=== PATIENT | male | born 1930 | race Caucasian/White ===

== ENCOUNTER 2017-04-15 17:04 | Inpatient (IN) ==
[2017-04-15] MEDS ORDERED: TYLENOL PO PRN (17:24)
[2017-04-15] MEDS ORDERED: PROTONIX PO PRN (18:06)
[2017-04-15] MEDS ORDERED: ANTIVERT PO ONE (18:08)
[2017-04-15] MEDS ORDERED: ANTIVERT PO PRN (18:08)
[2017-04-15] MEDS: NS 1,000 ML IV SCH (18:47)
[2017-04-15 19:54] LABS: MANUAL DIFF NEEDED? NO
--- NOTE | 2017-04-15 19:56 | Diag Imaging Result Doc PS360 ---
EXAM: CT HEAD W/O CONTRAST TECHNIQUE: Dose reduction protocol was used. INDICATION: Acute visual change/ dizziness COMPARISON: None. FINDINGS: There is chronic appearing low attenuation in the external capsules bilaterally suggesting microangiopathy. There is a chronic lacunar infarct involving the left basal ganglion. There is no definite acute infarct given the limited sensitivity of CT versus MRI. There is no discrete intracranial mass, mass effect, or intracranial hemorrhage. The orbits and globes are essentially unremarkable. There is left sphenoid sinus mucosal disease. Surrounding soft tissues are essentially unremarkable, otherwise. The calvaria is intact. IMPRESSION: 1.Chronic appearing intracranial changes as described. No evidence of acute intracranial pathology by CT. 2.Left sphenoid sinus mucosal disease. Electronically signed by Fernando Baker 04/15/2017 7:53 PM
[2017-04-15 19:59] LABS: BASO% 0.6 % (0.0-0.8); EOS% 4.5 % (0.0-10.0); HEMOGLOBIN 14.7 g/dL (14.0-18.0); IMM GRAN# 0.02 X1000 (0.0-0.04); IMM GRAN% 0.3 % (0.0-0.5); LYMPH# 1.45 X1000 (1.2-3.4); LYMPH% 21.9 % (20.5-51.1); MCH 28.7 PG (27-31); MCHC 34.2 g/dL (33-37); MONO# 0.54 X1000 (0.11-0.59); MONO% 8.2 % (1.7-9.3); MPV 9.5 FL (7.4-10.4); NEUT% 64.5 % (42.2-75.2); PLT 234 X1000 (130-400); RBC 5.12 XMIL (4.7-6.1)
[2017-04-15 20:10] LABS: INR 1.01; PROTIME 10.6 Seconds (9.2-11.7); PTT 29.3 Seconds (22.0-36.0)
[2017-04-15 20:19] LABS: AGAP 14; ALBUMIN 4.3 g/dL (3.5-5.0); ALKALINE PHOSPHATASE 92 U/L (32-122); BUN 14 mg/dL (8-22); CALCIUM 9.2 mg/dL (8.8-10.2); CHLORIDE 102 mmol/L (98-107); CK PROFILE 75 U/L (24-204); COSMO 283; GOT 17 U/L (10-34); GPT 11 U/L (10-44); POTASSIUM 3.8 mmol/L (3.5-5.1); SODIUM 142 mmol/L (136-145); TCO2 26 mmol/L (25-35); TOTAL BILIRUBIN 0.31 mg/dL (0.20-1.00)
[2017-04-15] MEDS: TOPROL XL PO SCH (20:40)
[2017-04-15 20:42] LABS: FREE T4 1.17 ng/dL (0.93-1.70)
--- NOTE | 2017-04-15 21:04 | HISTORY AND PHYSICAL ---
PRIMARY CARE PHYSICIAN: Frantz Randle MD. CHIEF COMPLAINT: Acute visual abnormality and dizziness. HISTORY OF PRESENT ILLNESS: An 86-year-old, white male with a past medical history significant for an abnormal skin examination with multiple actinic keratoses and seborrheic keratoses, right bundle branch block, carotid artery disease, carpal tunnel syndrome, cervical spine disease, coronary artery disease status post coronary artery bypass grafting in 2009, reflux disease, hypertension, hypertriglyceridemia, hyperlipidemia, chronic low back pain, paroxysmal atrial fibrillation, and cervical spinal stenosis who presents for evaluation of above-mentioned symptoms. Current history of present illness began last night. At that time, patient states he had developed acute onset dizziness, weakness, and blurred vision. The patient states that symptoms lasted for several hours, but did improve prior to his going to bed. The patient states he rested overnight. He awoke this morning feeling reasonably well. The patient states he drove to [employer] for breakfast and then home without incident. 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 The patient stopped his work and contacted my office. Patient was encouraged to pursue acute care, although he deferred. The patient presented to clinic this afternoon for further evaluation and management. He describes the visual change as a blurriness. He does have a longstanding history of intermittent diplopia and dysconjugate gaze requiring prism glasses. He describes this new change as being different in character. The patient's dizziness is described as somewhat similar to previous episodes of vertigo. He notes exacerbation of his symptoms with quick/abrupt movements. Patient states while sitting still, his dizziness resolves. He denies chest pains, palpitations, shortness of breath, or additional neurologic deficits at the present time. He has noted some increasing fatigue over the course of the last week. PAST MEDICAL HISTORY: 1. Multiple actinic keratoses and seborrheic keratoses. 2. History of appendectomy in 1941 secondary to acute appendicitis. 3. Right painful osteoarthritis. 4. Right bundle branch block/bifascicular block. 5. Carotid artery disease, left greater than right followed by Dr. Ritchie. 6. Carpal tunnel syndrome status post bilateral releases. 7. Ischemic heart disease status post coronary artery bypass grafting in January 2010. 8. History of intermittent dizziness/vertigo. 9. Reflux disease. 10. Hypertension. 11. Hypertriglyceridemia. 12. External hemorrhoids. 13. Hyperlipidemia. 14. Left inguinal hernia status post surgical intervention in 2011. 15. Low back pain with significant lumbar osteoarthritis. 16. Paroxysmal atrial fibrillation diagnosed in 2006 with no recurrence since coronary artery bypass grafting in 2009. 17. Cervical spinal stenosis status post surgical intervention in 2013. CURRENT MEDICATIONS: 1. Aspirin 81 mg daily. 2. Celebrex 200 mg daily as needed. 3. Fish oil 1200 mg at bedtime. 4. Glucosamine Chondroitin daily. 5. Metoprolol ER 25 mg at bedtime. 6. Protonix 40 mg daily as needed. 7. Vitamin B12, 1000 mcg daily. ALLERGIES: Patient states CoQ10 causes myalgias and weakness. Pravastatin causes myalgias. SOCIAL HISTORY: Patient denies tobacco, alcohol or illicit drug use. 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 He enjoys woodworking, house jonathan, and farming. He exercises by walking. FAMILY HISTORY: Patient's father passed at age 76 secondary to complications of coronary artery disease. Patient's mother passed at age 95 secondary to "old age." REVIEW OF SYSTEMS: A 12 point review of systems was performed. Pertinent positives and negatives were noted in history present illness. PHYSICAL EXAMINATION: VITAL SIGNS: Temperature 98.2 degrees, heart rate 73, respirations 18, blood pressure is 145/82. GENERAL: Well-nourished, well-developed, in no acute distress. HEENT: Normocephalic, atraumatic. Pupils equal, round, reactive to light. Extraocular muscles intact. Sclerae anicteric. [place] conjunctivae. Oral mucosa and nasopharynx clear without exudate. NECK: Supple. No lymphadenopathy. No thyromegaly. No bruits auscultated. CARDIOVASCULAR: Regular rate and rhythm. No significant murmurs, rubs, or gallops. PULMONARY: Clear to auscultation bilaterally. ABDOMEN: Soft, nontender, nondistended. Positive bowel sounds. EXTREMITIES: Moves all extremities well. No significant clubbing, cyanosis, or edema. NEUROLOGIC EXAMINATION: Cranial nerves 2 through 12 grossly intact. Motor and sensory grossly intact with the exception of intermittent dysconjugate gaze. PSYCHOLOGIC EXAMINATION: Appropriate. LABORATORY DATA: Pending at the time of admission. RADIOLOGIC IMAGING: Pending at the time of admission. ASSESSMENT AND PLANNING: An 86-year-old, white male with a complicated past medical history, who presents for evaluation of acute onset visual abnormalities with associated dizziness. While this could represent underlying vertigo, I am very concerned this likely represents a neurological deficit secondary to an intracranial process/stroke. The patient will be admitted to the hospital for full evaluation and management of this condition. 1. Admit to General Medicine. 2. Acute visual change - As above, I encouraged patient to go immediately for ophthalmologic evaluation, however, patient deferred. The question is raised whether this is a primary visual or primary central etiology. We will check a CT scan of the head. Patient denies pain at the present time. For now, we will continue supportive care. We will plan on ophthalmologic evaluation once able. 3. Dizziness - Again, this could represent underlying vertigo. I am concerned that a neurological insult may have precipitated this. We will treat patient with as needed Antivert and hydration. We will follow this. 4. Unsteady gait - Patient has a significant unsteady gait, likely secondary to dizziness. We will evaluate as described above. 5. Carotid artery disease - Patient has known disease. Certainly progressive carotid artery disease could present in a similar fashion. We will check a carotid Doppler. 6. Ischemic heart disease - Patient is status post coronary artery bypass grafting in 2009. The patient currently is not interested in statin intervention. We will otherwise continue to optimize his medical management. He certainly is at risk for arrhythmia. 7. Reflux disease - We will continue as needed Protonix therapy. 8. Hypertension - Patient's blood pressure is slightly elevated today. We will continue to follow this closely. 9. Hyperlipidemia - As above, patient's cholesterol has been held. Should this prove to be consistent with an underlying stroke, we will again discuss the possibility of starting intervention. 10. Paroxysmal atrial fibrillation - This is historical. Certainly, patient is at risk for recurrence. We will monitor patient with telemetry overnight. 11. Cervical spinal stenosis - We will remain aware. 12. Fluid, electrolytes, nutrition. We will monitor electrolytes. Normal saline at 50 mL an hour. Regular diet. 13. Prophylaxis - Patient will be placed on subcutaneous Lovenox. cc: Frantz Randle MD
[2017-04-16] MEDS: VITAMIN B-12 PO SCH (09:06)
[2017-04-16] MEDS: FISH OIL CONCENTRATE PO SCH (09:06)
--- NOTE | 2017-04-16 13:34 | PROGRESS NOTE ---
DATE: 04/16/2017 SUBJECTIVE: Overall, patient is moderately improved from yesterday. The patient received IV fluids overnight. CT scan revealed chronic changes, but no acute disease. This morning, patient states his dizziness has decreased, but not resolved. He was able to ambulate into the restroom without incident. He notes his vision also has improved, although not back to baseline. He denies fevers, chills, nausea, vomiting, shortness of breath, or chest discomfort. OBJECTIVE: T-max is 98.5 degrees, heart rate 66-76, respirations 18-20, blood pressure 134 to 176 over 69 to 90.General: No acute distress. Cardiovascular: Regular rate and rhythm. No significant murmurs, rubs, or gallops. Pulmonary: Clear to auscultation bilaterally. Abdomen: Soft, nontender, nondistended. Positive bowel sounds. Extremities: Moves all extremities well. No significant clubbing, cyanosis, or edema. Dermatologic: Evaluation reveals no evidence of rash. LABORATORY DATA: White blood cell count 6.61, hemoglobin 14.7, hematocrit 43.0, platelet counts 234,000. Sedimentation rate 8. PT 10.6, INR is 1.01. PTT is 29.3. Sodium 142, potassium 3.8, chloride 102, bicarb 26, BUN 14, creatinine 1.0. Glucose 95, calcium 9.2, total bilirubin 0.31, total protein 7.0 albumin 4.3, alkaline phosphatase 92, AST 17, ALT 11, CK 75, troponin less than 0.010. CRP 0.280. TSH 2.49, free T4 1.17. ASSESSMENT AND PLAN: 1. Acute visual changes - as above, patient has achieved improvement, although not resolution. I am concerned this may be centrally mediated suggesting a small stroke versus a TIA. At this point, we will continue medical management. We will add aspirin therapy. Once able, we will plan an MR evaluation and carotid Doppler. We will also plan an ophthalmologic evaluation early next week. We will follow this. 2. Dizziness - once again, I am concerned this could be centrally mediated. We will evaluate with an MRI as noted. We will continue symptomatic management with IV fluids and Antivert. 3. Unsteady gait - Once again, I suspect this is secondary to his acute illness. We will keep in mind a cervical spinal stenosis may also be playing a role. We will continue management as above. 4. Carotid artery disease - patient has known disease. We will plan to recheck a carotid Doppler as soon as available. We will continue aspirin therapy. 5. Ischemic heart disease - we will continue patient on aspirin therapy. He defers statin intervention at present time. We will continue blood pressure control. 6. Reflux disease - we will continue Protonix therapy. 7. Hypertension - patient's blood pressure is reasonably controlled on his current regimen. 8. Hyperlipidemia - as above, patient is resistant to statin intervention. He understands associated risk of not pursuing intervention. 9. Paroxysmal atrial fibrillation - this is historical. We will continue following the patient on telemetry. Thus far, he has had no evidence of atrial fibrillation. 10. Disposition - at this point, patient continues to require penitentiary care in a hospital setting. We will plan discharge home once appropriate. cc: Frantz Randle MD
[2017-04-16] MEDS: ASPIRIN PO SCH (14:53)
[2017-04-16] MEDS: NS 1,000 ML IV SCH (14:54)
--- NOTE | 2017-04-16 17:53 | Carotid Study ---
DATE: 04/15/2017 PROCEDURE: Carotid duplex imaging. REFERRING PHYSICIAN: Dr. Frantz Randle INTERPRETING PHYSICIAN: Dr. Perry [facility]: [place] INDICATIONS: 1. Dizziness with vertigo. 2. Visual changes. OBSERVED DATA RIGHT LEFT Brachial Blood Pressure Carotid Pulse Bruits: Carotid/Sub DIAGRAM OF ULTRASOUND IMAGING R L RIGHT INT EXT INT EXT LEFT John (cm/s) John (cm/s) Subclavian 115/0 Subclavian 103/0 CCA Proximal 78/9 CCA Proximal 73/7 CCA Distal 80/9 CCA Distal 82/12 Bulb 103/9 Bulb 93/15 ICA Proximal 95/9 ICA Proximal 130/25 ICA Mid 57/12 ICA Mid 117/17 ICA Distal 45/10 ICA Distal 56/14 ECA 112/0 ECA 109/0 Vertebral 41/4 A Vertebral 59/10 A ICA/CCA Ratio 1.18 ICA/CCA Ratio 1.58 % Stenosis 0 to 39 % Stenosis 40 to 59 FINDINGS: Minimal atherosclerosis that produces a mild stenosis on the right with a moderate stenosis on the left. Both vertebral arteries are antegrade flow. PHYSICIAN INTERPRETATION: Moderate stenosis of the carotid artery noted on the left at 40% to 59%. There is normal to mild stenosis on the right at 0% to 39%. Both vertebral arteries are antegrade flow. cc: MD Frantz Hinojosa MD
[2017-04-16] MEDS: TOPROL XL PO SCH (21:27)
[2017-04-17 07:42] VITALS: BP 120/74
[2017-04-17] MEDS: NS 1,000 ML IV SCH ×2 (08:17→10:29)
[2017-04-17] MEDS: VITAMIN B-12 PO SCH (08:18)
[2017-04-17] MEDS: FISH OIL CONCENTRATE PO SCH (08:18)
[2017-04-17] MEDS: ASPIRIN PO SCH (08:18)
[2017-04-17] MEDS ORDERED: LOVENOX SUBQ SCH (09:00)
--- NOTE | 2017-04-17 21:16 | DISCHARGE SUMMARY ---
ADMISSION DATE: 04/15/2017 DISCHARGE DATE: 04/17/2017 ADMISSION DIAGNOSES: 1. Acute visual abnormality. 2. Dizziness. DISCHARGE DIAGNOSES: 1. Acute visual changes, improving. 2. Dizziness, improving. 3. Unsteady gait, improving. 4. Carotid artery disease, present on arrival. 5. Ischemic heart disease, present on arrival. 6. Reflux disease, present on arrival. 7. Hypertension, present on arrival. 8. Hyperlipidemia, present on arrival. 9. Paroxysmal atrial fibrillation, present on arrival. CONSULTATIONS: None. PROCEDURES: 1. A CT scan of the head was performed on 04/15/2017 which revealed chronic appearing intracranial changes with no evidence of acute intracranial pathology. Left sphenoid sinus mucosal disease. 2. A carotid Doppler was performed on 04/16/2017 which revealed moderate stenosis of the carotid artery noted on the left at 40-59%. There was normal to mild stenosis on the right with 0- 39%. Both vertebral arteries are antegrade flow. HISTORY AND PHYSICAL EXAMINATION: See admit note. PHYSICAL EXAMINATION PRIOR TO DISCHARGE: Vital Signs: Temperature 97.6, heart rate 65, respirations 17, blood pressure is 120/74. General: Well nourished, well developed, no acute distress. Cardiovascular: Regular rate and rhythm. No significant murmurs, rubs, or gallops. Pulmonary: Clear to auscultation bilaterally. Abdomen: Soft, nontender, nondistended. Positive bowel sounds. Extremities: Moves all extremities well. No significant clubbing, cyanosis, or edema. Neurologic: Cranial nerves 2 through 12 grossly intact. Motor and sensory grossly intact. Psychologic: Examination is appropriate. LABORATORY DATA PRIOR TO DISCHARGE: None. HOSPITAL COURSE: Patient was admitted as per history and physical examination. Hospital course per condition is as follows. 1. Acute visual changes - upon admission, patient was noted to have acute visual change with associated blurriness. Full neurologic evaluation including a CT scan of the head was pursued. No definitive etiology was identified. Concern was raised for the possibility of an underlying transient ischemic attack. The patient was placed on aspirin 325 mg daily and aggressive, but cautious hydration. Through hospitalization, patient's visual changes improved considerably, nearing his baseline. On the day of discharge, patient wished to be discharged home with close outpatient followup. We will plan an ophthalmologic evaluation within the next 24-48 hours. We will also plan an MRI of the brain. The patient has been instructed should he have any change in his overall condition whatsoever, he is to let me know immediately. 2. Dizziness - patient has chronic dizziness, although this also was out of character. This raised concern for possible central etiologies including a TIA/stroke. CT scan was performed with above-mentioned results. The patient was started on IV hydration and as needed Antivert. With these interventions, his symptoms improved considerably. As above, within the next 48 hours, we will plan an MRA of the brain and ophthalmologic evaluation. Should dizziness persist with a negative evaluation, we will consider referral to the balance center. 3. Unsteady gait - this too was above his baseline. This likely was secondary to both his dizziness and visual changes. We will aggressively pursue evaluation as described above. 4. Carotid artery disease-patient has longstanding disease. He had no evidence of flow-limiting disease on examination today. We will remain aware. 5. Ischemic heart disease - the patient has longstanding disease. He had been taking a baby aspirin; however, we will increase this to 325 mg daily. He remains resistant to statin intervention. 6. Reflux disease - patient is currently using Protonix only as needed. We will continue this as an outpatient. 7. Hypertension - patient's blood pressure is controlled on his current regimen. 8. Hyperlipidemia - as above, we discussed this in detail. At present time, he is not interested in statin intervention. 9. Paroxysmal atrial fibrillation - the patient was monitored with telemetry while hospitalized. There was no evidence of atrial fibrillation while hospitalized. DISCHARGE CONDITION: Good. DISPOSITION: Discharged to home with close family evaluation. MEDICATIONS: 1. Acetaminophen 650 mg every 4 hours as needed. 2. Aspirin 325 mg daily. 3. Vitamin B12 1000 mcg daily. 4. Antivert 12.5 mg twice daily as needed. 5. Metoprolol ER 12.5 mg at bedtime. 6. Fish oil 1200 mg daily. FOLLOWUP: The patient is to call me tomorrow with an update. We will follow up with him after his ophthalmological evaluation and MRI have been performed within the next 48 hours. cc: Frantz Randle MD
== END 2017-04-17 11:22 | disposition home or self-care (01) ==
LOC: DIRADM 17:04 → 3N 17:20
PROVIDERS: ADMIT Internal Medicine; ATTEND Internal Medicine